=== PATIENT | female | born 1935 | race Caucasian/White ===

== ENCOUNTER → 2016-04-25 | Outpatient (CLI) | payer OTHER ==
[~2016-04-25] MED LIST: BACTROBAN CREAM30 G2 TOP; DOXYCYCLINE 10100 MG PO; HYDROCODONE-AP1 EAC6 PO; LEVAQUIN 500 M500 M1 PO; LEVAQUIN 500 M500 M2 PO; PENICILLIN V P500 MG PO; SSD CREAM 1% 5050 GM TOP; XARELTO20 MG PO
== END ==
LOC: HYPER 07:11
DX: S81.801D Unspecified open wound, right lower leg, subsequent encounter (principal); E11.9 Type 2 diabetes mellitus without complications; I89.0 Lymphedema, not elsewhere classified; Z86.718 Personal history of other venous thrombosis and embolism; X58.XXXD Exposure to other specified factors, subsequent encounter

== ENCOUNTER → 2016-05-10 | Outpatient (CLI) | payer OTHER | LOC: HYPER 07:05 | DX: I87.331 Chronic venous hypertension (idiopathic) with ulcer and inflammation of right lower extremity (principal); E11.622 Type 2 diabetes mellitus with other skin ulcer; L97.811 Non-pressure chronic ulcer of other part of right lower leg limited to breakdown of skin; I82.501 Chronic embolism and thrombosis of unspecified deep veins of right lower extremity; I89.0 Lymphedema, not elsewhere classified; R60.0 Localized edema; L03.115 Cellulitis of right lower limb ==

== ENCOUNTER → 2016-05-31 | Outpatient (CLI) | payer OTHER | LOC: HYPER 07:18 | DX: I87.331 Chronic venous hypertension (idiopathic) with ulcer and inflammation of right lower extremity (principal); L97.812 Non-pressure chronic ulcer of other part of right lower leg with fat layer exposed; I89.0 Lymphedema, not elsewhere classified; Z86.718 Personal history of other venous thrombosis and embolism ==

== ENCOUNTER 2016-06-05 01:45 | Inpatient (IN) | payer OTHER ==
[~2016-06-05] VITALS: Ht 162.6 cm; Wt 55.6 kg
[2016-06-05] VITALS (34 sets, daily range): BP systolic 89–127; BP diastolic 48–99
--- NOTE | ~2016-06-05 | HC ---
[facility] [place] [place] [address] CONSULTATION Name: CAS ROCHE LESLIE Room #: 309-P ADM IN M.R.#: [id number] Admission: 06/05/16 Attend Phys: Benjamin Mixon MD Discharge: Date of : 39 Report #: [id number] THIS REPORT FOR: //name// CC: Pino Mixon DATE OF SERVICE: 06/05/2016 NEPHROLOGY CONSULTATION REASON FOR CONSULTATION: Acute kidney injury and multiple metabolic and electrolyte abnormalities. HISTORY OF PRESENT ILLNESS: This is a 80-year-old female who had actually been here at [facility] in early April, presenting with a similar, but less severe episode of recurring emesis. She has a complex large ventral hernia, which had been evaluated during that prior hospitalization. At that time, she presented with a couple of days of vomiting and had some mild metabolic abnormalities. This time around, her emesis started 4-1/2 days ago. The patient seems to sequester some information, but her son is here and very helpful and states that she has been having emesis likely hourly over those 4 days. Every time she takes fluid in, she has sudden regurgitation. She has gotten even more thirsty, so she tries to drink even more fluid on top of that and then ends up having even more emesis. She finally went to the emergency room in [place] last evening after she had a syncopal-type episode. Her presentation there was rather remarkable. She had a pH of 7.7 and a measured bicarbonate of 50. Her potassium was 2.0 at that time. She was started on some replacement, but began having some cardiac arrhythmias and the one strip I have been able to look at looked like an SVT. She was eventually transferred here to [facility] and got here early this morning. In talking to the patient, she has not had any emesis since she has arrived here, but she has not had anything in by mouth. She has had no blood in her emesis. She has had some nausea, but she has been so thirsty that she has been trying to make up the difference by taking in all those fluid. Her urine output is decreased and had turned very dark. She had gotten weak and had this syncopal type episode. She was unaware of any cardiac arrhythmias. She has had no more arrhythmias since she has been here. All of her electrolytes will be outlined below. She has received about 1-1/2 liters of saline since arrival here. She has already received 60 mEq of potassium replacement. Blood pressures are actually doing better. In talking to the patient, she is unaware of any prior renal problems. Looking back at her hospitalization in early April, she presented then with a creatinine level of 1.8. She was alkalotic, with a bicarbonate of 40 at that time[address] [address] CONSULTATION Name: CAS ROCHE Room #: 309-P ADM IN M.R.#: [id number] Admission: 06/05/16 Attend Phys: Benjamin Mixon MD Discharge: Date of : 37 Report #: [id number] Potassium was not bad at 3.7. With volume replacement, she went down to her creatinine and within 3 days, down to 0.8 and at that time, her bicarbonate had dropped to 36. Obviously, she had not fully corrected at that point. Now, she comes in with potassium of 2.3, bicarbonate greater than 45, BUN 79 and creatinine 3.2. The patient relates no urinary symptoms. She is unaware of previous urinary tract infections. I reviewed the CT scan that was done during her April hospitalization and she has a left kidney that is in the pelvic location. With that, she also has large Staghorn calculus in that kidney, suggesting she has had chronic UTIs that were asymptomatic. Right kidney was fairly unremarkable on that. Additionally, at this time, the patient has leukocytosis with a white count of 19.3. She has been battling lower extremity edema due to chronic venous stasis and lymphedema. She has DVT remotely about 30 years ago. Another DVT was diagnosed more recently and she is chronically on some anticoagulation. She has also had some cellulitis involved with her right leg and has been on some antibiotics associated with that. She has also been getting local care of those wounds by Dr. Luis Mary of the wound center. The patient's son actually states that her leg wounds have improved rather dramatically. PAST MEDICAL HISTORY: She has had this large hernia some time after her section in the . She is not on much in the way of chronic medications. She has been on some Levaquin as an antibiotic and local care for her legs. Other than that, just the Xarelto. She denies any previous history of cardiac disease. She has had the chronic lymphedema. PAST SURGICAL HISTORY: Past surgeries include the section in the . She has had bilateral cataracts. ALLERGIES: No known medical allergies. FAMILY HISTORY: Noncontributory. SOCIAL HISTORY: The patient is a . Her main residence is in [place], [place]. She is retired. She and her son actually spent quite a bit of time down in the [facility] at a time. She down there and enjoyed being in that location. She is a nonsmoker. REVIEW OF SYSTEMS: Mostly positive for the recurring emesis and the increasing amount of thirst. Her bowels have not moved for 5 days. No difficulty voiding urine normally. No dysuria. She had the syncopal-type episode and states she did realize that she was getting thirsty. She denies dyspnea, cough or chest pain. She is unaware of palpitations. She did get very hot yesterday, but had no documented fever. Later on, she felt very chilled. She has the chronic lower extremity edema as noted above. She has no upper extremity edema. No recent visual or hearing changes. [facility] [address] [place] [address] CONSULTATION Name: CAS ROCHE LESLIE Room #: 309-P [place] IN ..#: [id number] Admission: 06/05/16 Attend Phys: Benjamin Mixon MD Discharge: Date of : 37 Report #: [id number] PHYSICAL EXAMINATION: GENERAL: Acutely ill-appearing female who is awake and responsive, mildly lethargic. VITAL SIGNS: Blood pressure 103/53, heart rate 73, respiratory rate 18 and oxygen saturation 100%. HEENT EXAMINATION: Shows pupils are equal and reactive. Sclerae nonicteric. Oral mucosa is very dry. Palate and lips are irritated and mildly erythematous. NECK: Shows no JVD. Neck is supple. No adenopathy. CHEST: Clear bilaterally in all lung mane. HEART: Currently a regular rate and rhythm. ABDOMEN: Shows a complex, very protuberant ventral hernia. There are soft loops of presumably intestine within the ventral hernia, although this has been described radiologically of having a large percent of the stomach in this hernia also. It is generally reducible, although she does get somewhat uncomfortable with that. It is remarkably soft, non-taut. There are a few bowel sounds present. This hernia does encompass a large portion of the anterior abdominal wall and appears to be in 2 resection, which is consistent with the radiologic appearance of it being complex with 2 main areas. EXTREMITIES: Upper extremities show no edema. Lower extremities show chronic venous stasis changes with dense edema and pebbling, much more severe on the right than the left. Left side is probably 2+, right side is 3+. She has new dressing on the posterior aspect, so I did not unwrap this to look at the area that had been most inflamed. NEUROLOGIC: She is grossly intact. LABORATORY DATA: Sodium 145, potassium 2.3, chloride 82, bicarbonate greater than 45, BUN 79, creatinine 3.2 and glucose 176. AST 204, ALT 169. Total protein 6.1. Albumin 2.9. Total bilirubin 2.6. Calcium 8.4. Magnesium 2.5. White count 19.3, hemoglobin 14.5, hematocrit 44.4 and platelets 299,000. Differential on the white count, 82 segs, 8 bands, 4 lymphs and 6 monos. Urinalysis: Specific gravity greater than 1.030, pH 5.0, 1+ protein, 2+ bilirubin, trace ketones, 6-15 white cells and 0-2 red cells. Arterial blood gas on admission, pH of 7.67, pCO2 of 48, pO2 of 66 and lactate of 9.25. ASSESSMENT: 1. Recurring emesis due to enlarged ventral hernia. Again, she reports it is being nearly hourly for 4 days. 2. Metabolic alkalosis, severe due to her recurring emesis. She has very high pH in spite of severe hyperventilation in attempts at compensating with retaining CO2. Appropriately, this is hypochloremic. She needs extensive amounts of saline. Her blood pressure was actually doing better than when she came in. She will need liters of saline to correct this. During her prior admission, when she was volume repleted, it still took her some time to correct her alkalosis. So, we will need to monitor that. 3. Hypokalemia, severe, also related to her emesis and her metabolic alkalosis. [facility] [address] [place] [address] CONSULTATION Name: CAS ROCHE LESLIE Room #: 309-P ADM IN M.R.#: [id number] Admission: 06/05/16 Attend Phys: Benjamin Mixon MD Discharge: Date of : 37 Report #: [id number] As we correct the alkalosis, we will get a better picture of what her potassium status is. We have already given her a significant amount of potassium and we will recheck in a couple of hours and continue to replace as needed. 4. Acute kidney injury related to her extreme volume depletion. She is making some urine. Her urine does have a very high specific gravity. 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 She had a normal creatinine at 0.8 as recently as her date of discharge in early April. Again, we would expect further improvement in this. 5. Ventral hernia, large and complex. This has been previously evaluated by Dr. Rojas. Since this is the second presentation and the current presentation is much more severe than it had been previously, I think there needs to be some potential urgency in getting this surgically repaired, although I know it will be a very complex procedure. We will defer to Dr. Rojas. 6. Chronic Staghorn calculus, left kidney. This would suggest she has had long-standing urinary tract infections, which have been asymptomatic and potentially under-diagnosed. We will see what her current cultures show, although she has been on antibiotics for some time related to her right lower extremity. At this point, this is not one of her problems needing the most rapid correction, but will certainly need more attention down the line. 7. Chronic venous stasis changes/lymphedema of the lower extremities with associated cellulitis. She has been on local care and that has actually been improving. Dr. Mary will be involved in her care here. 8. Deep venous thrombosis, which likely was the original cause of her chronic venous stasis changes. Her first one was documented decades ago. She has had a more recent one. She is being continued on anticoagulation. 9. Cardiac arrhythmias, which looked to be supraventricular tachycardia. This would be largely electrolyte related. As we replace, we will look for evidence of further cardiac abnormalities, but she appears to be in sinus rhythm and more stable at this time. PLAN: 1. Increase the volume replacement. We will shoot for several more liters of IV saline today. Her blood pressure is doing better, but she is still volume deplete. 2. Replace potassium aggressively. She is likely several 100 mEq behind, if not more. Additionally, we will watch for changes as we correct her alkalosis. We will check labs again in a few hours. 3. Recheck additional labs, including phosphorus and magnesium, although the magnesium was okay earlier. 4. Continue to monitor for cardiac arrhythmias. 5. Culture her urine and blood. 6. Continue lower extremity wound care. [address] [address] CONSULTATION Name: CAS ROCHE LSELIE Room #: 309-P ADM IN M.R.#: [id number] Admission: 06/05/16 Attend Phys: Benjamin Mixon MD Discharge: Date of : 37 Report #: [id number] We will follow along closely in the care of this acutely ill patient. <ELECTRONICALLY SIGNED> By: Mani Smith MD 06/09/16 1116 [id number] Jamie Mcdonald MD /nt
--- NOTE | ~2016-06-05 | HC ---
[facility] [place] [address] [place] [address] CONSULTATION Name: CAS ROCHE Room #: 516-1 [facility] IN M.R.#: [id number] Admission: 06/05/16 Attend Phys: Benjamin Mixon MD Discharge: 06/10/16 Date of : 37 Report #: [id number] THIS REPORT FOR: //name// CC: Pino Mixon DATE OF SERVICE: 06/06/2016 DATE OF SERVICE: 06/06/2016. REQUESTING PHYSICIAN: Dr. Benjamin Mixon. CHIEF COMPLAINT: Right lower extremity ulcerations. HISTORY OF PRESENT ILLNESS: This is a pleasant white female who I had been following in the outpatient clinic for chronic ulcerations on her right lower extremity for the past several months. The patient was seen within the past week and was improving. Her edema was well controlled with compression wraps. The patient has been using morphine, Silvadene cream over the open ulcerations with adequate pain relief. The patient states approximately 2 days after her clinic visit, she started having nausea, vomiting, had recurrence of small-bowel obstruction which prompted her to be admitted to the hospital. I have been asked to assist in the care of her ulcerations at this time. PAST MEDICAL HISTORY: Significant for abdominal ventral hernia, chronic lymphedema, diabetes, peripheral vascular disease, right leg DVT, recurrent cellulitis both legs. CURRENT MEDICATIONS: Multiple, I reviewed the patient's medication list does include Xarelto. DRUG ALLERGIES: None. SOCIAL HISTORY: The patient resides at home with her son, does not smoke or drink alcohol. FAMILY HISTORY: Not pertinent to current medical condition. REVIEW OF SYSTEMS: CONSTITUTIONAL: The patient denies fevers or chills. NEUROLOGIC: The patient complains of overall generalized weakness, but no isolated weakness in arms or legs. EYES: No complaints. ENT: No complaints. CARDIAC: The patient denies chest pain, palpitations, peripheral edema. RESPIRATORY: The patient denies shortness of breath, cough or wheezes. [facility] [address] [place] [address] CONSULTATION Name: CAS ROCHE Room #: 516-1 [facility] IN ..#: [id number] Admission: 06/05/16 Attend Phys: Benjamin Mixon MD Discharge: 06/10/16 Date of : 37 Report #: [id number] GASTROINTESTINAL: The patient complains of nausea, vomiting, now with NG tube with abdominal distention and mild pain consistent with a bowel obstruction. GENITOURINARY: No complaints. MUSCULOSKELETAL: No complaints. SKIN: There are multiple ulcerations on the right lower extremity, all of which are superficial. PHYSICAL EXAMINATION: VITAL SIGNS: Stable. The patient is afebrile. GENERAL: This is alert and oriented x 3, pleasant white female who is in no acute distress at this time. HEENT: Normocephalic, atraumatic. Mucous membranes are dry. NG tube is in the right naris. Pupils are round. Sclerae white. NECK: Supple. Nontender. LUNGS: Clear. HEART: Regular. ABDOMEN: Soft. Mildly distended without rebound or guarding. EXTREMITIES: The patient moves all extremities without difficulty, evaluation of right lower extremity reveals 2-3+ edema, which is chronic for her, patient without significant warmth. There is erythema which is chronic for her. There is ulcerations noted on the posterior aspect of the calf, which are clean, superficial and granulating without signs of cellulitis. Distal pulses are intact. Bilateral heels are intact. NEUROLOGIC: Cranial nerves 2-12 are grossly. Motor and sensory grossly intact. LABORATORY DATA: White cell count 12.0, hemoglobin 12.6, albumin is low at 2.3. IMPRESSION: 1. Chronic ulceration, right lower extremity. Limited breakdown of skin. 2. Chronic venous insufficiency with edema. 3. Secondary lymphedema, secondary to chronic venous insufficiency. 4. Small-bowel obstruction. 5. Severe protein calorie malnutrition with albumin of 2.3. PLAN: The patient responds well to morphine, Silvadene cream. We will do this over the ulceration on the right lower extremity, cover this with Xeroform, ABD, Kerlix. At this time, the patient obviously n.p.o. and so we will try, once she becomes off n.p.o. we will make sure we maximize her oral protein supplementation for healing. Keep her legs elevated as much as possible to decrease edema, keep her heels elevated off the bed while she is in bed. Once she is able, we will have physical and occupational therapy evaluate the patient for strengthening. <ELECTRONICALLY SIGNED> By: Luis Mary MD 06/15/16 0826 [id number] Luis Mary MD /nt
--- NOTE | ~2016-06-05 | HC ---
[facility] [place] [address] [place] [address] CONSULTATION Name: CAS ROCHE LESLIE Room #: 309-P [facility] IN M.R.#: [id number] Admission: 06/05/16 Attend Phys: Benjamin Mixon MD Discharge: Date of : 37 Report #: [id number] THIS REPORT FOR: //name// CC: Pino Mixon REASON FOR CONSULTATION: Recurrent nausea and vomiting related to small-bowel obstruction. HISTORY OF PRESENT ILLNESS: The patient is a 80-year-old white female transferred to [facility] from [facility] for SVT, hypotension, hypokalemia, recurrent nausea and vomiting. History is obtained from the patient with the support of her son. She had eaten at a buffet with her son on Monday and felt unwell later that day. She developed recurrent nausea and vomiting the following day, which has persisted, not allowing her to keep food down since that time. She has not had a bowel movement since Monday, but still has been able to pass flatus. She had had a similar episode 7 weeks ago for which she was hospitalized 4 or 5 days and attributed to small-bowel obstruction. She does have a large midline incisional ventral hernia that contained stomach, colon and small bowel, and for this reason, she was evaluated by general surgery, Dr. Rojas. She does not relate that she has undergone any previous GI evaluation such as upper endoscopy or colonoscopy in the past. PAST MEDICAL HISTORY: She has a large ventral hernia, which has been present for over 30 years. She has undergone previous , tonsillectomy, cataract surgery. She does have bilateral peripheral lymphedema. She has a history of DVT in the right leg, maintained on Xarelto. She has diabetes mellitus and a history of peripheral vascular disease. CURRENT MEDICATIONS: Pantoprazole 40 mg IV per day, Zosyn 2.25 grams IV q. 6 hours, norepinephrine for blood pressure support, potassium supplements. ALLERGIES: No known drug allergies. SOCIAL HISTORY: She does not smoke cigarettes or drink alcohol. REVIEW OF SYSTEMS: She has felt increasingly weak. She had no documented fevers or chills at home. On presentation, she had denied shortness of breath, wheezing, coughing or chest pain. Gastrointestinal, as per HPI. She has had no preceding dysuria or hematuria. She does have a history of a kidney stone. PHYSICAL EXAMINATION: GENERAL: She appears uncomfortable and leaning forward in bed with irritation of her throat following placement of her NG tube. She has a large amount of [address] [address] CONSULTATION Name: CAS ROCHE Room #: 309-P [facility] IN .R.#: [id number] Admission: 06/05/16 Attend Phys: Benjamin Mixon MD Discharge: Date of : 37 Report #: [id number] bilious material output almost 2 liters within the past hour after placement. She has been afebrile at 0600. VITAL SIGNS: Blood pressure 92/67, pulse 77. HEENT: No scleral icterus. NECK: Supple without lymphadenopathy. CARDIOVASCULAR: Heart rate and rhythm regular without murmur. LUNGS: Auscultation of her lungs reveals some decreased breath sounds and mild coarseness with breathing right anterior and posterior lung mane. ABDOMEN: Soft. She has a large abdominal wall hernia with many bowel loops within hernia sac many of which can be reduced through the abdominal defect into the abdomen without any obvious hard painful knots. She does have bilateral peripheral edema with very brawny changes. LABORATORY DATA: This morning include sodium 145, potassium 2.3, chloride 82, CO2 greater than 45, BUN 79, creatinine 3.2, glucose 176. Liver function tests were abnormal with total bilirubin of 2.6, AST 204, ALT 169 and alkaline phosphatase 79. Albumin was decreased at 2.9. White blood cell count was elevated at 19.3, hemoglobin 14.5, platelet count 299,000 with 82 segs, 8 bands. KUB revealed a large amount of material within the stomach and a large abdominal wall hernia with much of the stomach as well as small and large bowel loops through the anterior abdominal wall. IMPRESSION: 1. A small-bowel obstruction with recurrent nausea and vomiting since Monday. Following placement of NG within the past hour, she has had almost 2 liters of bilious material in return. 2. Large ventral wall hernia. 3. Severe metabolic alkalosis. 4. Acute renal failure. 5. Abnormal liver function tests. 6. History of DVT with maintenance on Xarelto. RECOMMENDATIONS: 1. Keep NG to suction. 2. Await CT abdomen, which has been ordered. 3. Monitor liver function tests. 4. With development of SVT with heart rate to 220 in the Emergency Room, she was started on IV Cardizem. <ELECTRONICALLY SIGNED> By: Misbah Root MD 06/10/16 0818 1239 [id number] Medhat Pena MD /nt
--- NOTE | ~2016-06-05 | HC ---
[facility] [place] [address] CONSULTATION Name: CAS ROCHE LESLIE Room #: 516-1 DIS IN M.R.#: [id number] Admission: 06/05/16 Attend Phys: Benjamin Mixon MD Discharge: 06/10/16 Date of : 37 Report #: [id number] THIS REPORT FOR: //name// CC: Pino Mixon HISTORY OF PRESENT ILLNESS: The patient is a 80-year-old white female who was transferred from [facility] with SVT, hypertension, severe hypokalemia down to 2.3. She apparently had been eating at a buffet and had onset of nausea and vomiting. She was noted to have severe electrolyte abnormalities with the SVT and was transferred to [facility]. Her SVT resolved after correction of her electrolyte abnormalities. She was noted to have a small-bowel obstruction with elevated liver function test and had a fecal impaction and underwent manual disimpaction on 06/05/2016. The patient has a history of an incarcerated ventral hernia and surgery is involved and they are not recommending any elective surgery until at least September with her recent diagnosis of a right lower extremity DVT in March. She has been on Xarelto. The patient currently has an NG tube in place. There is consideration for removal. She is significantly debilitated. We are seeing her in rehabilitation medicine consultation. PAST MEDICAL HISTORY: Includes the right lower extremity DVT in March for which she has been on Xarelto. She has a history of a chronic left staghorn calculus. She has cellulitis to the lower extremities and is followed with Dr. Luis Mary. Diet controlled diabetes, lymphedema, peripheral vascular disease. MEDICATIONS: Please see the full medication listing. HABITS: No history of tobacco or alcohol. SOCIAL HISTORY: Lives in a house, 2 steps in, did not utilize any gait aids. She lives with her son. This is [place] style. The son works from home. REVIEW OF SYSTEMS: Did not offer any current complaints of chest pain, shortness of breath or abdominal discomfort. She notes some throat discomfort as expected with the NG-tube. Did not offer any focal extremity pain complaints. She does have the chronic swelling and the cellulitis of her lower extremities. PHYSICAL EXAMINATION: GENERAL: The patient is a pleasant 80-year-old white female in no obvious distress. VITAL SIGNS: Last recorded temperature is 97.5, pulse 69, respirations 18, blood pressure 125/80. She is alert, pleasant. HEENT: Appeared to be benign except for the NG tube, which is in place[place] [address] CONSULTATION Name: CAS ROCHE LESLIE Room #: 516-1 [facility] IN ..#: [id number] Admission: 06/05/16 Attend Phys: Benjamin Mixon MD Discharge: 06/10/16 Date of : 37 Report #: [id number] EXTREMITIES: She has functional range of motion to both upper extremities; strength is grade 4-/5. DTRs are trace to 1. ABDOMEN: She has a large ventral hernia. It was not tense, was soft. In her lower extremities, she does have 1-2+ edema. Her right leg is wrapped. She does have some erythema both lower extremities with her cellulitis. Strength is probably a grade 4- to 3+/5. She is min assist with sit to stand. She was able to ambulate 30 feet contact guard with a front-wheeled walker. ASSESSMENT: A 80-year-old white female with the following problem list: 1. Medical complexity with generalized debilitation. 2. Severe metabolic alkalosis, which is being corrected. 3. Small bowel obstruction with nausea and vomiting, which has improved with the NG tube in place. 4. Large ventral wall hernia followed by surgery with no urgent plans for surgical intervention. 5. Acute renal failure with Nephrology following. 6. Abnormal LFTs improving, likely due to illness. 7. Chronic constipation with a fecal impaction status post recent disimpaction. 8. History of right lower extremity DVT on Xarelto, currently on hold. 9. Bilateral lower extremity cellulitis. 10. Supraventricular tachycardia, which resolved with resolution of metabolic abnormalities. PLAN: Discussion with the patient and son. She certainly may benefit from a short acute in-hospital inpatient rehabilitation stay once the NG tube is out and she is medically cleared. At this point, we will follow along with you and see how she does. Thank you for asking us to assist in this patient's care. <ELECTRONICALLY SIGNED> By: Inder Culp MD 06/15/16 1528 [id number] Inder Culp MD /nt
--- NOTE | ~2016-06-05 | HC ---
[facility] [place] [address] CONSULTATION Name: CAS ROCHE LESLIE Room #: 241-P ADM IN M.R.#: [id number] Admission: 06/05/16 Attend Phys: Benjamin Mixon MD Discharge: Date of : 37 Report #: [id number] THIS REPORT FOR: //name// CC: [facility]ino [facility]uffin [facility] DATE OF SERVICE: 06/05/2016 HISTORY OF PRESENT ILLNESS: The patient is a 80-year-old female who is known to the general surgery service who was admitted overnight through the emergency department with severe dehydration, electrolyte abnormalities, acute renal failure with a 5-day history of nausea, vomiting and inability to tolerate liquids. Had eventually sufferred what sounds like a symcopal episode and was seen at an outside facility. Was noted there to be in SVT, with severe electrolyte abnormalities. The patient was then transferred to [facility]. In the emergency department, she was noted to have a pH of 7.67, lactate of 9.25, white blood cell count of 19 and urinalysis showing 6-15 WBCs, 1-9 bacteria, moderate amorphous urates and 2+ bilirubin. Abdominal films were obtained at 0800 this morning, which demonstrated retained fluid within the stomach and large lower ventral hernia containing stomach, colon and small bowel. The viscera were noted to extend off the edge of the field of view. No obvious obstruction was noted, but stomach was noted to be fluid filled. Interestingly, her abdominal exam has reportedly been benign throughout. At some point, a nasogastric tube was placed and approximately 3 liters of gastric contents was evaluated. This output apparently tapered off following that. The son is at the bedside with the patient and gives the bulk of the history. He reports that she has had issues with constipation over the past couple of weeks. She is unable to have a bowel movement without an enema having been administered. She also has not been able to tolerate oral liquids or solids since this past Monday night or Monday morning. She has apparently not been in abdominal discomfort. She has been passing flatus throughout this time. PAST MEDICAL HISTORY: 1. Positive for lower extremity lymphedema with cellulitis being treated by wound care team. 2. History of chronic lower abdominal ventral incisional hernia from a prior in 1979 containing loops of colon and small bowel and stomach. 3. History of diabetes mellitus. 4. Reported history of peripheral vascular disease. 5. Cataracts. 6. Right lower extremity deep venous thrombosis history. PAST SURGICAL HISTORY: Positive for section in 1979, tonsillectomy, bilateral cataract surgery. [address] [address] CONSULTATION Name: CAS ROCHE LESLIE Room #: 241-P [facility] IN ..#: [id number] Admission: 06/05/16 Attend Phys: Benjamin Mixon MD Discharge: Date of : 37 Report #: [id number] FAMILY HISTORY: Includes coronary artery disease. SOCIAL HISTORY: Negative for tobacco, ETOH or drug use. The patient lives at home. Of note, the patient is on Xarelto regarding this lower extremity DVT. She has also been on chronic antibiotics for right lower extremity wound with cellulitis, which is resolving, being followed by Dr. Luis Mary. REVIEW OF SYSTEMS: CONSTITUTIONAL: Negative for fevers or chills. Negative for unwanted weight loss. OCULAR: History of bilateral cataract repair. No new known visual changes. HEENT: Positive for dry mouth, dry oral mucosa. Negative for dysphagia or odynophagia. PULMONARY: No productive cough, no hematemesis. CARDIOVASCULAR: Positive for SVT at outside facility prior to transfer. Positive for Simple type episode which triggered her being brought to the hospital in [place]. GASTROINTESTINAL: Positive for nausea, vomiting and inability to tolerate liquids. Positive for significant thirst. Unfortunately this would lead to further drinking of water, which would result in immediate emesis. Positive for history of severe constipation requiring multiple enemas in order to have a bowel movement. She does report passing flatus, but no significant large bowel movements in several days. ENDOCRINE: No heat or cold intolerance. Positive for history of diet-controlled diabetes. LYMPHATICS: Positive for lower extremity lymphedema with right lower extremity cellulitis followed by wound care team. GENITOURINARY: Positive for previous urinary tract infections, known history of left-sided staghorn calculus. ALLERGIES: No known drug allergies. MEDICATIONS: Levaquin 500 mg twice daily, Silvadene cream, [place] p.r.n., penicillin V, Xarelto 20 mg daily, and Bactroban ointment. PHYSICAL EXAMINATION: GENERAL: On exam, the patient is frail and lethargic. She does answer questions appropriately. She has a nasogastric tube in place with dark gastric content output. VITAL SIGNS: She is afebrile and her blood pressure is actually normal at this time with mean arterial pressure in the 75 range, pulse in the 70s-80s, respirations of 18, and maintaining her saturations are at 100%. HEENT: Shows head is atraumatic and normocephalic. She does have some cachexia of the temples. Mucosae are dry. No icterus is appreciated. NECK: Without jugular venous distention. HEART: Regular rate and rhythm. LUNGS: Clear to auscultation. No respiratory distress. No retractions. ABDOMEN: Soft with an impressive lower ventral hernia with loops of bowel palpable through the skin. The pannus protrudes down to the lower midline toward the waste. This is not significantly tender to palpation, however. The edges of the hernia are not palpable. Bowel sounds are present within the hernia sac. Well-healed lower midline incision. EXTREMITIES: With venous stasis versus lymphedema changes with 2-3+ edema. There was a dressing on the right lower leg from the area of prior cellulitis. Dressing is clean, [facility] [address] [place] [address] CONSULTATION Name: CAS ROCHE Room #: [facility] IN ..#: [id number] Admission: 06/05/16 Attend Phys: Benjamin Mixon MD Discharge: Date of : 37 Report #: [id number] dry and intact. The patient moves all extremities. Cranial nerves are grossly intact and symmetric. PSYCHIATRIC: Shows normal mood and affect. Laboratory studies are reviewed. Lactate has not been rechecked since admission. Most recent basic metabolic profile shows that the creatinine has improved to 2.4 from 3.2 on admission. BUN was 79 and is now 72, potassium 4.7, sodium 145, glucose of 120. Urinalysis from last night as described above. CT scan of the abdomen and pelvis without contrast was obtained on a stat basis, this was reviewed with radiology staff and images examined in detail in comparison with CT scan on 04/10/2016. This demonstrates the large lower midline abdominal incisional hernia with an opening of approximately 6 cm. This does appear chronic with approximately 40% of the colon and multiple loops of small bowel within that pouch. No obvious obstruction or strangulation, however. The diameter of the loops entering the hernia defect are similar to that exiting the defect. No sign of ischemia such as pneumatosis to the herniated loops. No free air or free fluid. Several calculi are noted within the bladder and a large left-sided staghorn calculus which is also in place in the previous CT in April. There is an impressive amount of stool in the rectum measuring approximately 9 x 9 x 10 cm consistent with an impaction. There is mild inflammation of the rectum surrounding this, again no obvious pneumatosis or signs of brody ischemia at that site. Celiac trunk and SMA are widely patent without obvious atherosclerosis, mild calcification in the distal splenic artery. Spleen is unremarkable. Gallbladder prominent, but unremarkable. The lower esophagus does have some thickening and the nasogastric tube is passed into the upper stomach in good position. No obvious appendicitis. IMPRESSION AND PLAN: 1. 80-year-old female with chronic large lower midline ventral incisional hernia containing loops of colon, small bowel, and stomach, severe metabolic alkalosis and dehydration with significant electrolyte abnormalities and recent supraventricular tachycardia noted associated with this. No obvious history of coronary artery disease or COPD. No obvious colonic or small bowel ischemia and no sign of acute perforation or peritonitis. No sign of bowel obstruction although partial gastric outlet obstruction may be associated with this chronic condition. Interestingly, the patient has continued to pass flatus over the past several weeks; however, she has developed a severe fecal impaction which will need to be addressed in the short term. 2. No indication for immediate surgical intervention for this large, chronic hernia. Discussed with the patient and her son that to repair a hernia with extensive externalized viscera, that has been in place for an extended period of time, will result in loss of domain, which is decreased intra-peritoneal volume. As such, in order to return the colon, small bowel, and stomach to their proper location, and to close the hernia defect, an abdominal wall reconstruction will likely be necessary to avoid creating an [facility] [address] [facility] [place] [address] CONSULTATION Name: CAS ROCHE Room #: 241-P ADM IN MNancy.#: [id number] Admission: 06/05/16 Attend Phys: Benjamin Mixon MD Discharge: Date of : 37 Report #: [id number] abdominal compartment syndrome. 3. Agree with aggressive resuscitative efforts and electrolyte correction by nephrology. Recommendations and medical management very much appreciated. 4. Will follow serial lactate levels and will follow closely with serial abdominal examinations. 5. Should signs of acute peritonitis or overt visceral ischemia become more apparent, will reevaluate potential need for more urgent surgical intervention. This patient is at high risk for perioperative complications, including perioperative hemorrhage as she is on Xarelto which has been held at this time. Will require 48-72 hours off Xarelto before elective surgical intervention would be advisable because of this. 7. Have discussed the case with hospitalist medicine and gastroenterology. Consultation very much appreciated. Will continue to follow closely and make further recommendations based upon clinical status as well as laboratory and radiographic findings. Greater than one hour utilized reviewing the patient's records, radiographic images and reports, laboratory studies and discussing with the patient and her family and the various consulting teams. <ELECTRONICALLY SIGNED> By: Kai Culver MD 06/06/16 0926 [id number] Kai Culver MD /nt
--- NOTE | ~2016-06-05 | EKG ---
[place] [address] [facility] [place] [address] ELECTROCARDIOGRAM REPORT Name: CAS ROCHE LESLIE Room #: 241-P ADM IN M.R.#: [id number] Admission: 06/05/16 Attend Phys: Benjamin Mixon MD Discharge: Date of : 37 Report #: [id number] THIS REPORT FOR: //name// [facility] Test Date: 2016-06-05 Test Time: 07:55:14 Pat Name: CAS ROCHE Department: Room: 241 P Gender: F Non Categorical Pres[employer] Teacher: SYMONE : 1935 Requested By: Conchis Chong Order Number: [id number] MD: Steve Stein Measurements Intervals [place] Rate: 73 P: 81 SC: 146 QRS: -59 QRSD: 95 T: 113 QT: 435 QTc: 480 Interpretive Statements Sinus rhythm Left anterior fascicular block Poor R-wave progression Nonspecific T wave abnormality No previous ECG available for comparison Electronically Signed On 06-05-2016 12:58:26 CDT by Steve Stein [email or web address] <ELECTRONICALLY SIGNED> By: Steve Stein MD, [facility] 06/05/16 1258 [id number] Steve Stein MD, [facility] /EPI
[2016-06-05 02:14] LABS: ABG SAMPLE TYPE ARTERIAL; HCO3 53.7 mmol/L (22.0-26.0); LACTATE 9.25 mmol/L (0.5-2.0); O2(CT) 19.2 mL/dL (15.0-23.0); O2Hb 92.5 % (92.0-98.0); PCO2 47.7 mmHg (35.0-45.0); PO2 65.5 mmHg (80.0-100.0); STICK SITE R.BRACHIAL; pH 7.669 (7.360-7.450); sO2 95.9 % (92.0-98.0); tCO2 55.1 mmol/L (24.0-30.0)
[2016-06-05 02:40] LABS: HEMATOCRIT 44.4 % (37.0-47.0); HEMOGLOBIN 14.5 gm/dL (12.0-15.0); MCH 28.9 pg (26.0-34.0); MCHC 32.6 g/dL (28.0-37.0); MCV 88.7 fL (80.0-100.0); PLATELET COUNT 299 thou/uL (150-400); RBC 5.01 mil/uL (4.20-5.00); RDW 14.8 % (10.5-14.5); WBC 19.3 thou/uL (4.0-11.0)
[2016-06-05 02:43] LABS: MANUAL DIFF YES
[2016-06-05 03:01] LABS: ALBUMIN 2.9 g/dL (3.4-5.0); ALKALINE PHOSPHATASE 79 U/L (46-116); BUN 79 mg/dL (7-18); CALCIUM 8.4 mg/dL (8.5-10.1); CHLORIDE 82 mmol/L (98-107); CREATININE 3.2 mg/dL (0.6-1.0); GLUCOSE 176 mg/dL (74-106); MAGNESIUM 2.5 mg/dL (1.8-2.4); SGOT 204 U/L (15-37); SGPT 169 U/L (30-65); SODIUM 145 mmol/L (136-145); TOTAL BILIRUBIN 2.6 mg/dL (<0.1-1.0); TOTAL PROTEIN 6.1 g/dL (6.4-8.2)
[2016-06-05 03:01] LABS: URINE BILIRUBIN 2+ (Negative); URINE BLOOD TRACE (Negative); URINE COLOR YELLOW; URINE GLUCOSE-RANDOM* NEGATIVE (Negative); URINE KETONES TRACE (Negative); URINE LEUKOCYTES-REFLEX 1+ (Negative); URINE PROTEIN (DIPSTICK) 1+ (Negative); URINE SPECIFIC GRAVITY >= 1.030 (1.003-1.035)
[2016-06-05 03:05] LABS: CO2 > 45 mmol/L (21-32); POTASSIUM 2.3 mmol/L (3.5-5.1)
[2016-06-05 03:12] LABS: ABSOLUTE NEUTROPHILS 17.4 thou/uL (1.4-8.2); LARGE PLATELETS FEW; TOTAL CELL COUNT 100
[2016-06-05 03:17] LABS: ICTOTEST (BILI CONFIRMATORY) Positive (Negative)
[2016-06-05 03:18] LABS: CASTS None Seen /LPF (None Seen)
[2016-06-05 03:19] LABS: SQUAMOUS 0-3 Few /LPF (0-3); URINE RBC 0-2 Rare /HPF (0-2); URINE WBC-REFLEX 6-15 Few /HPF (0-5)
[2016-06-05 03:20] LABS: AMORPHOUS URATES Moderate /LPF (None Seen); CRYSTALS None Seen /LPF (None Seen); HYALINE CASTS 0-3 Few /LPF (None Seen)
[2016-06-05 14:15] LABS: BUN 72 mg/dL (7-18); CALCIUM 7.7 mg/dL (8.5-10.1); CHLORIDE 89 mmol/L (98-107); CREATININE 2.4 mg/dL (0.6-1.0); GLUCOSE 145 mg/dL (74-106); SODIUM 145 mmol/L (136-145)
[2016-06-05 14:22] LABS: POTASSIUM 4.7 mmol/L (3.5-5.1)
[2016-06-05 14:25] LABS: CO2 > 45 mmol/L (21-32)
[2016-06-05 20:27] LABS: BUN 68 mg/dL (7-18); CALCIUM 7.3 mg/dL (8.5-10.1); CHLORIDE 92 mmol/L (98-107); CREATININE 2.1 mg/dL (0.6-1.0); GLUCOSE 127 mg/dL (74-106); POTASSIUM 3.3 mmol/L (3.5-5.1); SODIUM 144 mmol/L (136-145)
[2016-06-05 20:29] LABS: CO2 > 45 mmol/L (21-32)
[2016-06-06] VITALS (43 sets, daily range): BP systolic 56–126; BP diastolic 36–72
[2016-06-06 03:18] LABS: HEMOGLOBIN 12.6 gm/dL (12.0-15.0); MCH 29.1 pg (26.0-34.0); MCHC 32.2 g/dL (28.0-37.0); MCV 90.2 fL (80.0-100.0); RBC 4.32 mil/uL (4.20-5.00); RDW 14.7 % (10.5-14.5)
[2016-06-06 03:27] LABS: CALCIUM 7.4 mg/dL (8.5-10.1); MAGNESIUM 2.1 mg/dL (1.8-2.4); PHOSPHORUS 3.6 mg/dL (2.5-4.9); POTASSIUM 3.9 mmol/L (3.5-5.1)
[2016-06-06 12:40] LABS: ALBUMIN 2.3 g/dL (3.4-5.0); CALCIUM 7.7 mg/dL (8.5-10.1); CREATININE 1.6 mg/dL (0.6-1.0); PHOSPHORUS 2.8 mg/dL (2.5-4.9); POTASSIUM 3.2 mmol/L (3.5-5.1)
[2016-06-06 12:43] LABS: ALBUMIN 2.3 g/dL (3.4-5.0); DIRECT BILIRUBIN 0.5 mg/dL (<0.1-0.3); TOTAL BILIRUBIN 2.2 mg/dL (<0.1-1.0); TOTAL PROTEIN 4.9 g/dL (6.4-8.2)
[2016-06-07] VITALS (30 sets, daily range): BP systolic 61–115; BP diastolic 33–70
[2016-06-07 07:30] LABS: MCH 30.4 pg (26.0-34.0); MCV 89.3 fL (80.0-100.0); RBC 3.25 mil/uL (4.20-5.00); RDW 14.5 % (10.5-14.5); WBC 7.8 thou/uL (4.0-11.0)
[2016-06-07 07:33] LABS: HEMOGLOBIN 9.9 gm/dL (12.0-15.0)
[2016-06-07 07:46] LABS: CALCIUM 7.5 mg/dL (8.5-10.1); CREATININE 1.3 mg/dL (0.6-1.0); PHOSPHORUS 1.8 mg/dL (2.5-4.9); POTASSIUM 3.4 mmol/L (3.5-5.1); TOTAL BILIRUBIN 1.3 mg/dL (<0.1-1.0); TOTAL PROTEIN 4.7 g/dL (6.4-8.2)
[2016-06-08 00:11] VITALS: BP 105/40
[2016-06-08 04:00] VITALS: BP 97/41
[2016-06-08 06:49] LABS: CALCIUM 7.6 mg/dL (8.5-10.1); CREATININE 0.9 mg/dL (0.6-1.0); PHOSPHORUS 1.9 mg/dL (2.5-4.9); POTASSIUM 3.6 mmol/L (3.5-5.1)
[2016-06-08 08:20] VITALS: BP 110/55
[2016-06-08 14:03] VITALS: BP 125/80
[2016-06-08 16:38] VITALS: BP 136/60
[2016-06-08 19:17] VITALS: BP 98/37
[2016-06-09 05:00] VITALS: BP 118/56
[2016-06-09 07:55] LABS: HEMATOCRIT 30.8 % (37.0-47.0); HEMOGLOBIN 10.5 gm/dL (12.0-15.0); MCH 30.3 pg (26.0-34.0); MCV 89.1 fL (80.0-100.0); RBC 3.46 mil/uL (4.20-5.00); RDW 15.1 % (10.5-14.5); WBC 6.2 thou/uL (4.0-11.0)
[2016-06-09 07:57] VITALS: BP 106/53
[2016-06-09 08:43] LABS: ALBUMIN 1.9 g/dL (3.4-5.0); CREATININE 0.7 mg/dL (0.6-1.0); PHOSPHORUS 2.8 mg/dL (2.5-4.9); POTASSIUM 4.2 mmol/L (3.5-5.1); TOTAL BILIRUBIN 1.1 mg/dL (<0.1-1.0); TOTAL PROTEIN 4.5 g/dL (6.4-8.2)
[2016-06-09 11:07] VITALS: BP 136/66
[2016-06-09 15:10] VITALS: BP 105/57
[2016-06-09 20:00] VITALS: BP 108/54
[2016-06-10 04:00] VITALS: BP 128/57
[2016-06-10 07:24] VITALS: BP 119/59
[2016-06-10 11:16] VITALS: BP 127/64
[2016-06-10] MEDS ORDERED: LEVAQUIN 750 M750 MG PO (14:33)
== END 2016-06-10 16:45 | DRG 871 ==
LOC: ICU 01:45 → 3N 06-06 16:51
PROVIDERS: Hospitalist; Internal Medicine Nephrology; Nurse Practitioner; Nurse Practitioner Adult Health
DX: A41.9 Sepsis, unspecified organism (principal); E43 Unspecified severe protein-calorie malnutrition; K43.6 Other and unspecified ventral hernia with obstruction, without gangrene; N17.9 Acute kidney failure, unspecified; I47.1 Supraventricular tachycardia; E87.3 Alkalosis; L03.119 Cellulitis of unspecified part of limb; N39.0 Urinary tract infection, site not specified; L97.811 Non-pressure chronic ulcer of other part of right lower leg limited to breakdown of skin; L03.116 Cellulitis of left lower limb; L03.115 Cellulitis of right lower limb; E87.6 Hypokalemia; K52.9 Noninfective gastroenteritis and colitis, unspecified; T68.XXXA Hypothermia, initial encounter; N20.0 Calculus of kidney; I87.8 Other specified disorders of veins; E11.51 Type 2 diabetes mellitus with diabetic peripheral angiopathy without gangrene; E86.0 Dehydration; E11.622 Type 2 diabetes mellitus with other skin ulcer; K56.41 Fecal impaction; E83.39 Other disorders of phosphorus metabolism; Z79.899 Other long term (current) drug therapy; Z79.01 Long term (current) use of anticoagulants; Z68.21 Body mass index [BMI] 21.0-21.9, adult; Z98.41 Cataract extraction status, right eye; Z98.42 Cataract extraction status, left eye; Z86.718 Personal history of other venous thrombosis and embolism; Z82.49 Family history of ischemic heart disease and other diseases of the circulatory system
CPT/HCPCS: 10078; 10096; 27000

== ENCOUNTER 2016-06-10 12:45 | Inpatient (IN) | payer OTHER ==
[~2016-06-10] VITALS: Ht 162.6 cm; Wt 58.3 kg
--- NOTE | ~2016-06-10 | PLAN ---
[facility] [place] [address] REHAB UNIT PLAN OF CARE Name: CAS ROCHE Room #: 516-1 ADM IN M.R.#: [id number] Admission: 06/10/16 Attend Phys: Inder Culp MD Discharge: Date of : 37 Report #: [id number] THIS REPORT FOR: //name// CC: Inder Monroe The patient is seen back today in followup. She is in no distress. Last recorded temperature 36.8, pulse 86, respirations 20, and blood pressure 122/68. The patient is alert and pleasant. HEENT appeared to be benign. Facies are symmetric. Transfers are mod assist. She is ambulating 30 feet contact guard with a front-wheeled walker. Lower body dressing is dependent, upper body dressing is min assist. In speech therapy, she has functional comprehension and functional expression. ASSESSMENT: 1. Medical complexity with generalized debilitation. 2. Small-bowel obstruction with nausea and vomiting, which has improved/resolved. She does have a PIPIDA scan, which is pending for today. 3. Large ventral hernia with surgery involved with no urgent plans for surgical intervention. 4. Renal insufficiency. 5. Abnormal liver function test. 6. Chronic constipation with fecal impactions, status post recent disimpaction. 7. History of right lower extremity deep venous thrombosis, on Xarelto. 8. Bilateral lower extremity cellulitis. 9. Lower extremity edema with multiple lower extremity chronic ulcerations. Wound care has been involved. PLAN: The overall plan of care is based on the preadmission screen, post-admission physician evaluation and information garnered from therapy assessments. 1. Estimated length of stay is probably 7-10 days, maybe 2 weeks depending on what she needs and how she improves in therapies. 2. Medical prognosis is reasonably good. 3. Anticipated interventions includes the interdisciplinary acute inpatient rehabilitation program with PT and OT, rehab nursing assisting regarding medication management, skin care prophylaxis, bowel and bladder issues and nursing education. Speech therapy is involved as well regarding comprehension and expression. We will have the multiple sr risk management consultant physicians involved. 4. Anticipated functional outcomes would be for the patient to improve as far as transfers, mobility and ADLs, so that she can return back to the home setting at least at the walker level. 5. Discharge destination would be back home with her son. 6. Expected therapy by discipline would include PT and OT 1-1-1/2 hours per day each five days a week throughout the duration of the acute [place] [address] REHAB UNIT PLAN OF CARE Name: CAS ROCHE Room #: 516-1 [facility] IN ..#: [id number] Admission: 06/10/16 Attend Phys: Inder Culp MD Discharge: Date of : 37 Report #: [id number] therapy is involved now and may be one half to one hour per day, but we will need to see if she needs to continue with speech therapy. <ELECTRONICALLY SIGNED> By: Inder Culp MD 06/15/16 1528 0911 1215 Inder Culp MD /nt
--- NOTE | ~2016-06-10 | HC ---
[facility] [place] [address] CONSULTATION Name: CAS ROCHE Room #: 516-1 ADM IN M.R.#: [id number] Admission: 06/10/16 Attend Phys: Inder Culp MD Discharge: Date of : 37 Report #: [id number] THIS REPORT FOR: //name// CC: Inder Monroe DATE OF SERVICE: 06/11/2016 ATTENDING PHYSICIAN: Inder Culp MD REASON FOR CONSULTATION: The patient known to me from previous evaluation for ventral hernia. HISTORY OF PRESENT ILLNESS: This 80-year-old female patient was just transferred to rehab from a hospitalization for abdominal pain. She had been admitted to [facility] with severe dehydration, electrolyte abnormalities, and acute renal failure as well as nausea, vomiting and inability to tolerate liquids. She is found to have an elevated lactate. She resolved her obstructive process with nasogastric decompression and was transitioned to a solid diet. She has been transferred to rehabilitation for further care. I have been asked to follow the patient. PAST MEDICAL HISTORY: Significant for right lower extremity cellulitis, diet-controlled diabetes mellitus, cataracts, right lower extremity DVT, lymphedema, and known incisional ventral hernia. PAST SURGICAL HISTORY: Includes in 1979 through a lower midline incision. She also underwent tonsillectomy and adenoidectomy as a child. MEDICATIONS: Please see the hospital chart for details. These include levofloxacin, Silvadene, pantoprazole, mupirocin, rivaroxaban, and [place]. ALLERGIES: No known drug allergies. FAMILY HISTORY: Reviewed and noncontributory to this hospitalization. SOCIAL HISTORY: The patient denies use of tobacco, alcohol or illicit drugs. She is accompanied by her son. REVIEW OF SYSTEMS: As per history of present illness. In addition, GENERAL: The patient denies unintentional weight loss. Denies fever or chills. HEENT: Denies changes in taste, vision, hearing, or smell. RESPIRATORY: Denies shortness of breath, COPD or asthma. CARDIOVASCULAR: Denies chest pain or palpitations. GASTROINTESTINAL: As per history of present illness. Denies bright red blood per rectum. She does note postprandial right upper quadrant abdominal pain with [facility] [address] [place] [address] CONSULTATION Name: CAS ROCHE LESLIE Room #: 516-1 ADM IN ..#: [id number] Admission: 06/10/16 Attend Phys: Inder Culp MD Discharge: Date of : 37 Report #: [id number] nausea and vomiting. Her symptoms occur within 30 minutes to an hour after eating, especially after a fatty meal. GENITOURINARY: Denies dysuria, urgency, increased urinary frequency or hematuria. MUSCULOSKELETAL: Denies myalgia or arthralgia. NEUROLOGIC: Denies headaches, numbness or tingling. PSYCHIATRIC: Denies depression, anxiety or suicidal ideations. SKIN AND INTEGUMENTARY: Denies new skin lesions, rashes, or moles. ENDOCRINE: Denies polydipsia, polyuria, heat or cold intolerance. HEMATOLOGIC: Denies easy bleeding, bruising or anemia. All other review of systems is negative. PHYSICAL EXAMINATION: VITAL SIGNS: Temperature 98.1, blood pressure 119/47, pulse 82 and respirations 16. GENERAL: This is a thin frail appearing 80-year-old female patient accompanied by her son, in no acute distress. HEENT: Atraumatic, normocephalic with moist mucosal membranes. She has a daniel appearance to her space. NECK: Supple, no appreciable lymphadenopathy. Trachea is midline. CHEST: Clear bilaterally. No crackles or wheezes. CARDIOVASCULAR: Regular rate and rhythm, S1, S2. ABDOMEN: Soft with an obvious lower midline incisional ventral hernia. Bowel is seen directly beneath the skin. The patient has no excoriation of the abdominal skin. Bowel sounds are present within the hernia. The patient has mild tenderness to palpation without overlying erythema or edema. The hernia defect edges are not palpable. GENITOURINARY: Normal external female genitalia. EXTREMITIES: No clubbing or cyanosis. NEUROLOGIC: Cranial nerves 2-12 grossly intact. PSYCHIATRIC: Normal mood and affect. SKIN AND INTEGUMENTARY: No skin lesions, rashes, or moles. LABORATORY DATA: No labs are available at this time. IMPRESSION AND PLAN: This is a 80-year-old female patient with a chronic large lower midline incisional ventral hernia containing loops of colon, small bowel and stomach. This hernia has been present for quite some time. I appreciate no obvious colonic small bowel ischemia. I discussed with the patient and her son that to repair her hernia, she would require abdominal wall reconstruction due to large size of the hernia. She will need further evaluation. This operation would not need to be undertaken in an elective setting. Appreciate that a history of DVT, which was diagnosed in March and at the earliest she could undergo an operation would be in September, six weeks after the diagnosis of her DVT. She is currently receiving anticoagulation. Her gallbladder does need to be worked up with PIPIDA scan at some point in the future. If biliary disease [address] [address] CONSULTATION Name: CAS ROCHE Room #: 516-1 ADM IN M.R.#: [id number] Admission: 06/10/16 Attend Phys: Inder Culp MD Discharge: Date of : 37 Report #: [id number] is found to be present, her gallbladder can be removed at the time of her hernia repair. She may continue a low fat/no fat diet and continue taking her Xarelto. The patient and her son expressed understanding of the plan. I sincerely appreciate the opportunity to participate in the care of this patient and I will leave further recommendations and orders in the electronic medical record as appropriate. <ELECTRONICALLY SIGNED> By: Miguel Rojas MD, FACS 06/13/16 [id number] Miguel Rojas MD, FACS /nt
--- NOTE | ~2016-06-10 | H ---
[facility] [place] [address] [address] HISTORY AND PHYSICAL Name: CAS ROCHE LESLIE Room #: 516-1 ADM IN M.R.#: [id number] Admission: 06/10/16 Attend Phys: Inder Clup MD Discharge: Date of : 37 Report #: [id number] THIS REPORT FOR: //name// CC: Inder Monroe DATE OF SERVICE: 06/10/2016 HISTORY OF PRESENT ILLNESS: The patient is a 80-year-old white female who was originally transferred to [facility] from [facility] with SVT, hypertension and severe hypokalemia, down to 2.3. She apparently had been eating at a buffet and had the onset of nausea and vomiting. She was noted to have severe electrolyte abnormalities with the SVT and was transferred to [facility]. Her SVT resolved after correction of her electrolyte abnormalities. She was noted to have a small-bowel obstruction with elevated liver function tests and had a fecal impaction and underwent manual disimpaction on 06/05/2016. She has a history of an incarcerated ventral hernia and surgery is involved, and they are not recommending any elective surgery until at least September, with her recent diagnosis of a right lower extremity DVT in March. She has been on Xarelto. She had an NG tube in place and that was able to be removed. She is on liquids, and there is gradual advancement as tolerated. She is significantly debilitated and has the above noted issues of medical complexity. She has now been admitted for acute in-hospital inpatient rehabilitation. PAST MEDICAL HISTORY: Includes the right lower extremity DVT in March for which she has been on the Xarelto. She has a history of chronic left staghorn calculus. She has cellulitis of the lower extremities and is followed by wound care. She has diet-controlled diabetes, lymphedema and peripheral vascular disease. MEDICATIONS: Please see the full medication listing. Each of these medications was individually reconciled. That includes her medications as well as [id number]-eil-[id number] supplements, etc. HABITS: No history of tobacco or alcohol. SOCIAL HISTORY: Lives in a house, 2 steps in, did not utilize any gait aids. She lives with her son. This is a ranch-style house. Her son works from home. REVIEW OF SYSTEMS: Did not offer any current complaints of chest pain, shortness of breath or abdominal discomfort. Her throat discomfort has been improved after removal of the NG tube. Continues to complain of overall generalized weakness. She has the chronic swelling of her lower extremities with [place] [address] HISTORY AND PHYSICAL Name: CAS ROCHE Room #: 516-1 ADM IN .R.#: [id number] Admission: 06/10/16 Attend Phys: Inder Culp MD Discharge: Date of : 37 Report #: [id number] PHYSICAL EXAMINATION: GENERAL: She is a pleasant 80-year-old white female, in no obvious distress. VITAL SIGNS: Admission vitals are being obtained. The most recent vitals, prior to transfer, included temperature 36.9, pulse 73, respirations 16 and blood pressure 127/64. GENERAL: The patient is alert, follows basic commands without difficulty. Facies are symmetric. HEENT: Appeared to be benign. CHEST: Sounded clear to auscultation. CARDIOVASCULAR: Regular rate and rhythm with occasional extra beat. ABDOMEN: She has a large ventral hernia. It was not tense and was soft. EXTREMITIES: In lower extremities, she has 1+ to 2+ edema. Right leg was wrapped. She has erythema of both lower extremities with her cellulitis. Strength is a grade 4- to 3+/5. She has needed limited assistance with sit to stand and has only been ambulating a short distance with the front wheeled walker with assistance. ASSESSMENT: A 80-year-old white female with the following problem list: 1. Medical complexity with generalized debilitation. 2. Severe metabolic alkalosis. 3. Small-bowel obstruction with nausea and vomiting, which improved. 4. Large ventral hernia with surgery involved with no urgent plans for surgical intervention. 5. Renal insufficiency. Nephrology has been following. 6. Abnormal liver function tests that have been improving. 7. Chronic constipation with fecal impaction, status post recent disimpaction. 8. History of right lower extremity deep vein thrombosis, on Xarelto. This has been restarted. 9. Bilateral lower extremity cellulitis. 10. Supraventricular tachycardia which resolved. PLAN: The patient is admitted for acute in-hospital inpatient rehabilitation. From a post-admission physician evaluation perspective, there are no relevant changes since the preadmission screening. Please see the above review of prior and current medical and functional conditions and comorbidities. Please see the patient's previous and current functional status. As far as risk of complications, she has the multiple medical comorbidities as noted above. Initial plan of care involves the interdisciplinary acute inpatient rehabilitation program with goal of maximizing the patient's functional independence, so she can hopefully return back to her prior living situation. Measurable functional goals would be for her to become modified independent with transfers, mobility and ADLs, so that she can return back to the home setting. Prognosis is reasonably good. Estimated length of stay is probably at least 1-2 weeks pending progress. Potential barriers would include the multiple medical comorbidities and decreased functional status. The patient meets diagnostic criteria for an acute in-hospital inpatient [facility] [address] [place] [address] HISTORY AND PHYSICAL Name: CAS ROCHE LESLIE Room #: 516-1 ADM IN M.R.#: [id number] Admission: 06/10/16 Attend Phys: Inder Culp MD Discharge: Date of : 37 Report #: [id number] rehabilitation stay. She meets medical necessity criteria, and we will have the multiple foreign legal consultant physicians continue to follow while she is on rehabilitation. She does have the tolerance for an acute rehab stay and has appropriate discharge goals back to the home setting. <ELECTRONICALLY SIGNED> By: Inder Culp MD 06/15/16 1528 [id number] Inder Culp MD /nt
--- NOTE | ~2016-06-10 | HC ---
[facility] [place] [place] [address] CONSULTATION Name: CAS ROCHE Room #: 516-1 ADM IN M.R.#: [id number] Admission: 06/10/16 Attend Phys: Inder Culp MD Discharge: Date of : 37 Report #: [id number] THIS REPORT FOR: //name// CC: Inder Monroe DATE OF SERVICE: 06/11/2016 ATTENDING PHYSICIAN: Inder Culp M.D. SLATE ROOFER: Ney Sanders, Ph.D. CLINICAL PRESENTATION: The patient is a 80-year-old female admitted to the [facility] for treatment of medical complexity and general debility. She was initially admitted with severe metabolic alkalosis. Her initial assessment includes a small bowel obstruction with nausea and vomiting, large ventral hernia with surgery, renal insufficiency, abnormal liver function tests, chronic constipation with fecal impaction; history of right lower extremity deep vein thrombosis, on Xarelto; bilateral lower extremity cellulitis and supraventricular tachycardia which has resolved. A complete description of her medical condition and history along with medications can be found in her medical record. Neuropsychological consultation was requested to provide assistance in the assessment of cognitive and emotional status and to provide recommendations and services. Prior to this most recent medical event, she was living independently with her son. 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 She has one child. The patient is a high school graduate. There is no reported history of treatment for anxiety, depression, alcohol or drug misuse. The patient discontinued driving about 2 years ago. She is no longer cooking. She has not taken medication up until this hospitalization. Her son is very supportive and works from home. She can provide supervision as necessary. TECHNIQUES UTILIZED: Clinical interview, review of medical records, staff consultation and behavioral observation, family interview -- son, mini mental status exam 2 standard version and clock drawing. EXAMINATION FINDINGS: The patient was alert and cooperative with the assessment. She accurately described events surrounding her admission. There is no evidence of aphasia. Her thoughts are logical and goal oriented. There is no evidence of thought disorder. She does not report auditory or visual hallucinations. The patient does not indicate the experience of pain. She denies difficulty with memory, word finding or concentration. She states that her appetite is poor. While she denies anxiety or depression, her mood is somewhat anxious. She is concerned about her physical well being. [facility] [address] [place] [address] CONSULTATION Name: CAS ROCHE LESLIE Room #: 516-1 [facility] IN .R.#: [id number] Admission: 06/10/16 Attend Phys: Inder Culp MD Discharge: Date of : 37 Report #: [id number] Her performance on the MMSE 2 brief version is within normal limits with a raw score of 15 of 16. She was 3/3 for initial registration, 5/5 for orientation to time, 5/[address] and 2/3 for immediate recall of 3 items after brief time delay and distraction. Her performance on the MMSE 2 standard version was within normal limits with a raw score 28 of 30. She was 5/5 for serial sevens, 2/2 for naming, 1/1 for repetition. Auditory comprehension was within normal limits. She could read and follow a single command. The patient was able to write a sentence. She had difficulty in copying a simple geometric design suggesting some deficit and visual spatial organization. Clock drawing within normal limits. DIAGNOSTIC IMPRESSION: Adjustment disorder with anxious mood. Mild neurocognitive disorder, unspecified, without behavior disorder. RECOMMENDATIONS: The patient appears to be showing good recovery in cognitive functioning. She is alert and oriented. Her son is available to provide assistance as needed. Her son and the patient did not report concern regarding her cognitive functioning or emotional state. The anxiety is likely secondary to her medical condition and resolving as she improves. Thank you very much for allowing me to provide the consultation on this patient. <ELECTRONICALLY SIGNED> By: Ney Sanders, PhD 06/14/16 1149 1521 [id number] Ney Sanders, PhD /nt
[2016-06-10] MEDS ORDERED: LEVAQUIN 750 M750 MG PO (14:33)
[2016-06-11 05:58] VITALS: BP 119/47
[2016-06-11 16:00] VITALS: BP 130/69
[2016-06-12 05:32] VITALS: BP 122/69
[2016-06-12 16:00] VITALS: BP 126/68
[2016-06-13 05:23] VITALS: BP 122/68
[2016-06-13 05:49] LABS: HEMATOCRIT 30.4 % (37.0-47.0); HEMOGLOBIN 10.4 gm/dL (12.0-15.0); MCH 30.4 pg (26.0-34.0); MCHC 34.3 g/dL (28.0-37.0); MCV 88.8 fL (80.0-100.0); RBC 3.42 mil/uL (4.20-5.00); RDW 14.7 % (10.5-14.5); WBC 6.4 thou/uL (4.0-11.0)
[2016-06-13 06:09] LABS: ALBUMIN 1.9 g/dL (3.4-5.0); CREATININE 0.7 mg/dL (0.6-1.0); PHOSPHORUS 2.2 mg/dL (2.5-4.9); POTASSIUM 3.6 mmol/L (3.5-5.1)
[2016-06-14 04:46] VITALS: BP 109/56
[2016-06-14 04:53] LABS: HEMATOCRIT 28.3 % (37.0-47.0); HEMOGLOBIN 9.6 gm/dL (12.0-15.0); MCHC 34.1 g/dL (28.0-37.0); PLATELET COUNT 181 thou/uL (150-400); RBC 3.21 mil/uL (4.20-5.00); RDW 14.8 % (10.5-14.5); WBC 6.1 thou/uL (4.0-11.0)
[2016-06-14 05:05] LABS: ALBUMIN 1.8 g/dL (3.4-5.0); CALCIUM 8.1 mg/dL (8.5-10.1); CREATININE 0.7 mg/dL (0.6-1.0); MAGNESIUM 1.4 mg/dL (1.8-2.4); POTASSIUM 3.7 mmol/L (3.5-5.1); TOTAL BILIRUBIN 0.2 mg/dL (<0.1-1.0); TOTAL PROTEIN 4.4 g/dL (6.4-8.2)
[2016-06-14 05:06] LABS: MANUAL DIFF YES
[2016-06-14 07:57] LABS: ABSOLUTE NEUTROPHILS 4.3 thou/uL (1.4-8.2); ANISOCYTOSIS 1+; METAMYELOCYTES 1 %; TOTAL CELL COUNT 100
[2016-06-14 16:00] VITALS: BP 124/64
[2016-06-15 05:49] VITALS: BP 109/58
[2016-06-15 06:14] LABS: HEMATOCRIT 27.1 % (37.0-47.0); HEMOGLOBIN 9.1 gm/dL (12.0-15.0); MCH 29.7 pg (26.0-34.0); MCHC 33.4 g/dL (28.0-37.0); MCV 88.8 fL (80.0-100.0); PLATELET COUNT 175 thou/uL (150-400); RBC 3.05 mil/uL (4.20-5.00); RDW 15.4 % (10.5-14.5); WBC 6.4 thou/uL (4.0-11.0)
[2016-06-15 06:20] LABS: MANUAL DIFF YES
[2016-06-15 06:53] LABS: ALBUMIN 1.8 g/dL (3.4-5.0); CALCIUM 7.9 mg/dL (8.5-10.1); CREATININE 0.7 mg/dL (0.6-1.0); MAGNESIUM 1.8 mg/dL (1.8-2.4); POTASSIUM 3.9 mmol/L (3.5-5.1); TOTAL BILIRUBIN 0.2 mg/dL (<0.1-1.0); TOTAL PROTEIN 4.4 g/dL (6.4-8.2)
[2016-06-15 08:08] LABS: ABSOLUTE NEUTROPHILS 5.1 thou/uL (1.4-8.2); ANISOCYTOSIS 1+; METAMYELOCYTES 1 %; TOTAL CELL COUNT 100
[2016-06-15 16:00] VITALS: BP 107/60
[2016-06-16 05:31] VITALS: BP 119/68
[2016-06-16 05:43] LABS: ABSOLUTE NEUTROPHILS 5.3 thou/uL (1.4-8.2); BASOPHILS 0.2 % (0.0-2.0); EOSINOPHILS 0.5 % (0.0-3.0); HEMATOCRIT 28.1 % (37.0-47.0); HEMOGLOBIN 9.6 gm/dL (12.0-15.0); LYMPHOCYTES 12.3 % (24.0-44.0); MCV 88.1 fL (80.0-100.0); MONOCYTES 8.5 % (1.0-8.0); PLATELET COUNT 184 thou/uL (150-400); POLYS 78.5 % (36.0-66.0); RBC 3.19 mil/uL (4.20-5.00); RDW 15.7 % (10.5-14.5); WBC 6.8 thou/uL (4.0-11.0)
[2016-06-16 05:45] LABS: MANUAL DIFF NO
[2016-06-16 05:53] LABS: CREATININE 0.6 mg/dL (0.6-1.0); MAGNESIUM 1.7 mg/dL (1.8-2.4); POTASSIUM 3.6 mmol/L (3.5-5.1)
[2016-06-16 16:15] VITALS: BP 104/53
[2016-06-17 06:04] VITALS: BP 98/51
[2016-06-17] MEDS ORDERED: LEVAQUIN 750 M750 MG PO (10:54)
[2016-06-17] MEDS ORDERED: PROTONIX40 M1 PO (10:54)
[2016-06-17] MEDS ORDERED: ZOFRAN ODT4 MG DISSOLVE (10:54)
[2016-06-17 11:22] VITALS: BP 98/51
== END 2016-06-17 12:45 | disposition home or self-care (01) | DRG 947 ==
PROVIDERS: Internal Medicine Nephrology; Nurse Practitioner
DX: R53.81 Other malaise (principal); E43 Unspecified severe protein-calorie malnutrition; L97.919 Non-pressure chronic ulcer of unspecified part of right lower leg with unspecified severity; E87.3 Alkalosis; I47.1 Supraventricular tachycardia; L03.115 Cellulitis of right lower limb; E44.0 Moderate protein-calorie malnutrition; N17.9 Acute kidney failure, unspecified; K43.0 Incisional hernia with obstruction, without gangrene; F43.20 Adjustment disorder, unspecified; G31.84 Mild cognitive impairment of uncertain or unknown etiology; F41.9 Anxiety disorder, unspecified; K59.09 Other constipation; I10 Essential (primary) hypertension; E87.6 Hypokalemia; E86.0 Dehydration; E11.51 Type 2 diabetes mellitus with diabetic peripheral angiopathy without gangrene; I87.8 Other specified disorders of veins; I89.0 Lymphedema, not elsewhere classified; E83.42 Hypomagnesemia; Z98.49 Cataract extraction status, unspecified eye; Z86.718 Personal history of other venous thrombosis and embolism; Z79.899 Other long term (current) drug therapy; Z68.22 Body mass index [BMI] 22.0-22.9, adult
CPT/HCPCS: 10112

== ENCOUNTER → 2016-07-12 | Outpatient (CLI) | payer OTHER ==
[~2016-07-12] MED LIST changes: +LEVAQUIN 750 M750 MG PO; +PROTONIX40 M1 PO; +ZOFRAN ODT4 MG DISSOLVE
== END ==
LOC: HYPER 06-21 12:09
DX: I87.331 Chronic venous hypertension (idiopathic) with ulcer and inflammation of right lower extremity (principal); L97.812 Non-pressure chronic ulcer of other part of right lower leg with fat layer exposed; R60.0 Localized edema; I89.0 Lymphedema, not elsewhere classified; Z86.718 Personal history of other venous thrombosis and embolism

== ENCOUNTER → 2016-08-11 | Outpatient (CLI) | payer OTHER | LOC: HYPER 07:00 | DX: E11.622 Type 2 diabetes mellitus with other skin ulcer (principal); L97.812 Non-pressure chronic ulcer of other part of right lower leg with fat layer exposed; I87.331 Chronic venous hypertension (idiopathic) with ulcer and inflammation of right lower extremity; I82.501 Chronic embolism and thrombosis of unspecified deep veins of right lower extremity; I89.0 Lymphedema, not elsewhere classified; L03.116 Cellulitis of left lower limb; R26.9 Unspecified abnormalities of gait and mobility ==

== ENCOUNTER → 2016-09-13 | Outpatient (CLI) | payer OTHER | LOC: HYPER 07:02 | DX: I87.333 Chronic venous hypertension (idiopathic) with ulcer and inflammation of bilateral lower extremity (principal); E11.622 Type 2 diabetes mellitus with other skin ulcer; L97.812 Non-pressure chronic ulcer of other part of right lower leg with fat layer exposed; L97.822 Non-pressure chronic ulcer of other part of left lower leg with fat layer exposed; I89.0 Lymphedema, not elsewhere classified; Z86.711 Personal history of pulmonary embolism ==

== ENCOUNTER → 2016-10-11 | Outpatient (CLI) | payer OTHER | LOC: HYPER 07:26 | DX: I87.331 Chronic venous hypertension (idiopathic) with ulcer and inflammation of right lower extremity (principal); L97.812 Non-pressure chronic ulcer of other part of right lower leg with fat layer exposed; Z86.718 Personal history of other venous thrombosis and embolism; I89.0 Lymphedema, not elsewhere classified; E11.622 Type 2 diabetes mellitus with other skin ulcer ==

== ENCOUNTER 2016-11-04 05:34 | Inpatient (IN) | payer OTHER ==
[2016-11-04] VITALS (7 sets, daily range): BP systolic 111–165; BP diastolic 55–81
[~2016-11-04] VITALS: Ht 162.6 cm; Wt 43.1 kg
--- NOTE | ~2016-11-04 | HC ---
[facility] [place] [address] CONSULTATION Name: CAS ROCHE LESLIE Room #: 409-P ADM IN M.R.#: [id number] Admission: 11/04/16 Attend Phys: Rachel Rosado Discharge: Date of : 37 Report #: [id number] THIS REPORT FOR: //name// CC: Pino Rosado DATE OF SERVICE: 11/04/2016 REFERRING PROVIDER: Rachel Rosado M.D. REASON FOR CONSULTATION: Abdominal pain. HISTORY OF PRESENT ILLNESS: The patient is a 80-year-old thin male who is well known to our service as she has been seen numerous times for a large loss of abdominal domain, incisional ventral hernia. The patient has been admitted on numerous prior occasions with abdominal pain, dehydration, nausea and vomiting and has seen Dr. Rojas in the outpatient setting for planning to proceed with definitive surgical management. Most recently, the patient's son had declined proceeding with surgical intervention, and unfortunately, the patient presented back to the Emergency Room this morning with severe sudden-onset abdominal pain, nausea and vomiting that began last evening. The patient does have a history of a right lower extremity DVT on 2 prior occasions, for which she just finished a 6-month course of therapy with Xarelto. The patient does have redness to the left leg at this time and just received an ultrasound of the lower extremities, which showed no evidence of DVT in the right lower extremity; however, there is a new left femoral/popliteal DVT in the left lower extremity. Upon the most recent imaging, the patient does have what appears to be a gastric outlet obstruction with a large proportion of her stomach contained through the hernia defect with a markedly distended/dilated stomach that has been decompressed with an NG tube at this time. PAST MEDICAL HISTORY: Diabetes mellitus, cataracts, incisional ventral hernia from a via longitudinal midline wound, right lower extremity DVTs and prior cellulitis of the lower extremity. MEDICATIONS: Zofran, Silvadene cream and she just restarted Levaquin for her cellulitis. ALLERGIES: No known drug allergies. FAMILY HISTORY: Reviewed and noncontributory. SOCIAL HISTORY: The patient does not utilize tobacco, alcohol or illicit drugs. She is accompanied by her son today. REVIEW OF SYSTEMS: [address] [address] CONSULTATION Name: CAS ROCHE LESLIE Room #: 409-P [facility] IN M.R.#: [id number] Admission: 11/04/16 Attend Phys: Rachel Rosado Discharge: Date of : 37 Report #: [id number] GENERAL: The patient denies nocturnal fevers or chills. HEENT: No change in vision or change in hearing. NECK: No swelling or difficulty swallowing. HEART: No chest pain or palpitations. LUNGS: No cough or shortness of breath. ABDOMEN: Abdominal pain with nausea and vomiting. GENITOURINARY: No dysuria or hematuria. ENDOCRINE: No polyuria or polydipsia. HEMATOLOGIC: No history of bleeding or easy bruising. EXTREMITIES: No history weakness or limited range of motion. NEUROLOGIC: No history of syncope or near syncopal episodes. SKIN AND INTEGUMENT: No history of abnormal lesions or moles. PSYCHIATRIC: No history of anxiety or depression. PHYSICAL EXAMINATION: VITAL SIGNS: Temperature 98.0, pulse 86, respirations 20, blood pressure 127/57. She is 5 feet 4 inches tall and weighs 100 pounds. GENERAL: She is alert and oriented, in no acute distress. HEENT: Normocephalic, atraumatic. Pupils equal, round and reactive to light. NECK: Supple without lymphadenopathy. Trachea midline. HEART: Regular rate and rhythm. LUNGS: Clear to auscultation bilaterally. GASTROINTESTINAL: Abdomen is distended with tenderness to palpation, although the incarcerated contents are slightly firm, but they feel largely reducible at this time. NG tube is in the left naris, draining bilious fluid. GENITOURINARY: Normal external female genitalia. EXTREMITIES: No clubbing or cyanosis. However, she does have erythema to the left lower extremity with slight firmness and edema of the calf. NEUROLOGIC: Cranial nerves 2 through 12 are grossly intact. PSYCHIATRIC: Normal mood and affect. SKIN AND INTEGUMENT: No other abnormal lesions or moles. LABORATORY AND X-RAY DATA: CBC shows white blood cell count of 10.9 thousand, hemoglobin 15.5, platelets 199,000. She does have a left shift of 90% neutrophils. Her creatinine is 1.0. Her CO2 is markedly elevated at 45. Her liver function enzymes show an elevation of her total bilirubin to 2.6, and her glucose is elevated at 246. Ultrasound of the bilateral lower extremities shows a new left femoral-popliteal DVT but no evidence of right lower extremity DVT. CT scan of the abdomen and pelvis shows a large incisional ventral wall hernia with most of the colon and small bowel herniated into the subcutaneous tissues as well as massive fluid distention of the stomach with the distal stomach herniated through the abdominal wall defect as well, providing a gastric outlet obstruction. There is also marked fecal impaction within the rectal vault, and she has a staghorn calculus and a malrotated left pelvic kidney. ASSESSMENT AND PLAN: This is a 80-year-old female with a longstanding [address] [address] CONSULTATION Name: CAS ROCHE Room #: 409-P [facility] IN [facility].#: [id number] Admission: 11/04/16 Attend Phys: Rachel Oliver [place] Discharge: Date of : 37 Report #: [id number] history of an incisional ventral hernia containing nearly her entire small bowel, colon and the distal stomach with gastric outlet obstruction. This does feel slightly reproducible but nearly immediately recurs upon taking pressure off the abdominal wall. In addition, she has a new DVT of the left lower extremity and fecal impaction and chronic debility. At this time, the patient has had an NG tube placed, which will serve to decompress her stomach and provide relief from her gastric outlet obstruction. As her hernia does feel largely reducible at this time, I would like to place an abdominal binder on her to help prevent from recurrent incarceration. She did undergo a PIPIDA scan in the recent past showing a normal ejection fraction with immediate reproduction of symptoms upon injection of cholecystokinin, and therefore, at the time of definitive surgical management for her hernia, she would likely undergo open cholecystectomy as well. At this time, we will continue with aggressive intravenous fluid rehydration for support in addition to n.p.o. status and nasogastric tube decompression, and I will defer any anticoagulation to the primary care service at this time. If the patient does worsen acutely, we may necessitate emergent exploration, and as such, I would recommend treatment of her DVT with heparin in the initial phase rather than going right back on Xarelto, which would preclude safe exploration for a period of 2-3 days if needed. I will follow closely with serial abdominal exams and leave all further recommendations in the patient's chart as appropriate. I did spend greater than 16 minutes today reviewing her films with Dr. Carver of the Radiology Department discussing with the patient and her son in great detail the plan as outlined above. Again, I sincerely appreciate this consult. I will follow closely and leave any further recommendations in the patient's chart as appropriate. <ELECTRONICALLY SIGNED> By: Kaylee Pimentel MD, FACS 11/05/16 0918 [id number] Kaylee Pimentel MD, FACS /nt
[2016-11-04] MEDS ORDERED: VITAMIN D250000 UNIT PO (05:53)
[2016-11-04 06:42] LABS: CALCIUM 9.7 mg/dL (8.5-10.1); POTASSIUM 3.2 mmol/L (3.5-5.1)
[2016-11-04 06:44] LABS: HEMATOCRIT 46.1 % (37.0-47.0); HEMOGLOBIN 15.5 gm/dL (12.0-15.0); MCH 29.8 pg (26.0-34.0); MCHC 33.7 g/dL (28.0-37.0); MCV 88.3 fL (80.0-100.0); PLATELET COUNT 199 thou/uL (150-400); RBC 5.22 mil/uL (4.20-5.00); RDW 16.2 % (10.5-14.5); WBC 10.9 thou/uL (4.0-11.0)
[2016-11-04 06:48] LABS: ALBUMIN 3.8 g/dL (3.4-5.0); TOTAL BILIRUBIN 2.6 mg/dL (<0.1-1.0); TOTAL PROTEIN 6.4 g/dL (6.4-8.2)
[2016-11-04 06:51] LABS: MANUAL DIFF YES
[2016-11-04 07:13] LABS: ABSOLUTE NEUTROPHILS 9.8 thou/uL (1.4-8.2); ANISOCYTOSIS 1+; TOTAL CELL COUNT 100
[2016-11-04 10:08] LABS: TSH 1.084 uIU/mL (0.358-3.740)
[2016-11-04 15:05] LABS: INR 1.1; PROTIME 11.4 Seconds (9.3-11.4)
[2016-11-04 15:06] LABS: APTT 22.9 Seconds (24.5-32.8)
[2016-11-04 19:11] LABS: GLYCOHEMOGLOBIN (HGB A1C) 6.2 % (4.8-5.6)
[2016-11-05 03:14] VITALS: BP 122/66
[2016-11-05 03:31] LABS: ABSOLUTE NEUTROPHILS 5.3 thou/uL (1.4-8.2); BASOPHILS 0.1 % (0.0-2.0); EOSINOPHILS 0.2 % (0.0-3.0); HEMATOCRIT 38.8 % (37.0-47.0); LYMPHOCYTES 12.6 % (24.0-44.0); MCH 29.7 pg (26.0-34.0); MCHC 33.4 g/dL (28.0-37.0); MCV 88.9 fL (80.0-100.0); MONOCYTES 9.5 % (1.0-8.0); PLATELET COUNT 167 thou/uL (150-400); POLYS 77.6 % (36.0-66.0); RBC 4.37 mil/uL (4.20-5.00); RDW 15.5 % (10.5-14.5); WBC 6.8 thou/uL (4.0-11.0)
[2016-11-05 03:32] LABS: MANUAL DIFF NO
[2016-11-05 03:48] LABS: ALBUMIN 2.9 g/dL (3.4-5.0); CALCIUM 8.5 mg/dL (8.5-10.1); CREATININE 0.7 mg/dL (0.6-1.0); POTASSIUM 3.1 mmol/L (3.5-5.1); TOTAL PROTEIN 5.6 g/dL (6.4-8.2)
[2016-11-05 05:57] LABS: URINE BILIRUBIN NEGATIVE (Negative); URINE BLOOD 3+ (Negative); URINE COLOR YELLOW; URINE GLUCOSE-RANDOM* TRACE (Negative); URINE KETONES TRACE (Negative); URINE PROTEIN (DIPSTICK) NEGATIVE (Negative); URINE SPECIFIC GRAVITY 1.015 (1.003-1.035); URINE UROBILINOGEN 0.2 E.U./dl (0.2-1.0)
[2016-11-05 06:04] LABS: URINE LEUKOCYTES-REFLEX TRACE (Negative)
[2016-11-05 06:07] LABS: SQUAMOUS 4-10 Moderate /LPF (0-3); URINE RBC >20 Many /HPF (0-2)
[2016-11-05 06:08] LABS: CASTS None Seen /LPF (None Seen); CRYSTALS None Seen /LPF (None Seen); URINE WBC-REFLEX 0-5 Rare /HPF (0-5)
[2016-11-05 08:00] VITALS: BP 109/61
[2016-11-05 19:47] VITALS: BP 116/58
[2016-11-06 04:11] VITALS: BP 107/62
[2016-11-06 06:28] LABS: HEMATOCRIT 35.6 % (37.0-47.0); HEMOGLOBIN 12.5 gm/dL (12.0-15.0); MCH 30.2 pg (26.0-34.0); MCHC 34.9 g/dL (28.0-37.0); MCV 86.4 fL (80.0-100.0); RBC 4.13 mil/uL (4.20-5.00); RDW 15.2 % (10.5-14.5); WBC 5.5 thou/uL (4.0-11.0)
[2016-11-06 06:47] LABS: ALBUMIN 2.9 g/dL (3.4-5.0); CALCIUM 8.4 mg/dL (8.5-10.1); CREATININE 0.6 mg/dL (0.6-1.0); TOTAL BILIRUBIN 1.9 mg/dL (<0.1-1.0); TOTAL PROTEIN 5.1 g/dL (6.4-8.2)
[2016-11-06 08:00] VITALS: BP 107/54
[2016-11-06 16:00] VITALS: BP 114/48
[2016-11-06 18:56] VITALS: BP 108/74
[2016-11-07 04:47] VITALS: BP 120/65
[2016-11-07 06:18] LABS: HEMATOCRIT 37.8 % (37.0-47.0); HEMOGLOBIN 13.3 gm/dL (12.0-15.0); MCHC 35.1 g/dL (28.0-37.0); MCV 85.6 fL (80.0-100.0); RBC 4.42 mil/uL (4.20-5.00); RDW 15.3 % (10.5-14.5); WBC 4.5 thou/uL (4.0-11.0)
[2016-11-07 06:34] LABS: ALBUMIN 2.8 g/dL (3.4-5.0); CALCIUM 8.7 mg/dL (8.5-10.1); CREATININE 0.6 mg/dL (0.6-1.0); POTASSIUM 3.1 mmol/L (3.5-5.1); TOTAL BILIRUBIN 1.8 mg/dL (<0.1-1.0); TOTAL PROTEIN 5.5 g/dL (6.4-8.2)
[2016-11-07 07:48] VITALS: BP 120/65
[2016-11-07 15:30] VITALS: BP 119/62
[2016-11-07 20:05] VITALS: BP 114/40
[2016-11-08 04:11] VITALS: BP 118/60
[2016-11-08 06:23] LABS: MCH 30.2 pg (26.0-34.0); MCHC 35.1 g/dL (28.0-37.0); RBC 4.3 mil/uL (4.20-5.00); RDW 15.2 % (10.5-14.5); WBC 4.7 thou/uL (4.0-11.0)
[2016-11-08 09:07] VITALS: BP 133/51
[2016-11-08 09:46] LABS: CALCIUM 8.3 mg/dL (8.5-10.1); CREATININE 0.6 mg/dL (0.6-1.0); POTASSIUM 3.5 mmol/L (3.5-5.1)
[2016-11-08 16:00] VITALS: BP 116/56
[2016-11-08 19:52] VITALS: BP 103/34
[2016-11-09 05:03] VITALS: BP 110/47
[2016-11-09 08:00] VITALS: BP 123/63
[2016-11-09] MEDS ORDERED: PROTONIX40 M1 PO (14:03)
[2016-11-09] MEDS ORDERED: XARELTO15 MG PO (14:03)
[2016-11-09 14:19] VITALS: BP 123/63
== END 2016-11-09 13:30 | disposition home or self-care (01) | DRG 393 ==
LOC: ER 05:34 → 4N 08:34 → EROBS 08:34 → 4N 09:32 → 4W 11-08 11:54 → 4S 11-08 12:02
PROVIDERS: Emergency Medicine; Hospitalist; Internal Medicine
PROC: 0D9670Z Drainage of Stomach with Drainage Device, Via Natural or Artificial Opening (ICD-10-PCS; principal; 2016-11-07)
DX: K43.0 Incisional hernia with obstruction, without gangrene (principal); E43 Unspecified severe protein-calorie malnutrition; G93.41 Metabolic encephalopathy; E87.0 Hyperosmolality and hypernatremia; E87.3 Alkalosis; K31.1 Adult hypertrophic pyloric stenosis; I82.432 Acute embolism and thrombosis of left popliteal vein; I82.412 Acute embolism and thrombosis of left femoral vein; Z68.1 Body mass index [BMI] 19.9 or less, adult; E11.51 Type 2 diabetes mellitus with diabetic peripheral angiopathy without gangrene; E87.6 Hypokalemia; E86.0 Dehydration; K59.00 Constipation, unspecified; N20.0 Calculus of kidney; F41.1 Generalized anxiety disorder; K82.8 Other specified diseases of gallbladder; Z82.49 Family history of ischemic heart disease and other diseases of the circulatory system; Z79.899 Other long term (current) drug therapy; Z90.49 Acquired absence of other specified parts of digestive tract; Z86.718 Personal history of other venous thrombosis and embolism; Z98.41 Cataract extraction status, right eye; Z98.42 Cataract extraction status, left eye
CPT/HCPCS: 10091; 10102

== ENCOUNTER 2017-12-07 20:40 | Emergency (ER) | payer OTHER ==
[~2017-12-07] VITALS: Ht 162.6 cm; Wt 45.4 kg
[~2017-12-07 20:40] MED LIST changes: +VITAMIN D250000 UNIT PO; +XARELTO15 MG PO
[2017-12-07] MEDS ORDERED: ATIVAN0.5 MG PO (22:06)
[2017-12-07 22:24] LABS: ABSOLUTE NEUTROPHILS 9.1 thou/uL (1.4-8.2); BASOPHILS 0.1 % (0.0-2.0); EOSINOPHILS 0.1 % (0.0-3.0); HEMOGLOBIN 14.2 gm/dL (12.0-15.0); LYMPHOCYTES 5.8 % (24.0-44.0); MCH 29.2 pg (26.0-34.0); MCHC 34.7 g/dL (28.0-37.0); MCV 84.2 fL (80.0-100.0); MONOCYTES 9.4 % (1.0-8.0); PLATELET COUNT 398 thou/uL (150-400); POLYS 84.6 % (36.0-66.0); RBC 4.87 mil/uL (4.20-5.00); RDW 14.8 % (10.5-14.5); WBC 10.7 thou/uL (4.0-11.0)
[2017-12-07 22:32] LABS: CALCIUM 9.4 mg/dL (8.5-10.1); CREATININE 2.1 mg/dL (0.6-1.0)
[2017-12-07 22:34] LABS: POTASSIUM 2.7 mmol/L (3.5-5.1)
[2017-12-07 22:38] LABS: ALBUMIN 3.3 g/dL (3.4-5.0); DIRECT BILIRUBIN 0.4 mg/dL (<0.1-0.3); TOTAL BILIRUBIN 1.7 mg/dL (<0.1-1.0); TOTAL PROTEIN 6.8 g/dL (6.4-8.2)
[2017-12-07 23:31] LABS: URINE BLOOD NEGATIVE (Negative); URINE CLARITY SL CLOUDY; URINE COLOR YELLOW; URINE GLUCOSE-RANDOM* NEGATIVE (Negative); URINE KETONES TRACE (Negative); URINE NITRITE-REFLEX NEGATIVE (Negative); URINE PROTEIN (DIPSTICK) NEGATIVE (Negative); URINE SPECIFIC GRAVITY >= 1.030 (1.005-1.035); URINE UROBILINOGEN 0.2 E.U./dl (0.2-1.0)
[2017-12-07 23:32] LABS: URINE LEUKOCYTES-REFLEX 1+ (Negative)
[2017-12-07 23:33] LABS: ICTOTEST (BILI CONFIRMATORY) Negative (Negative); URINE BILIRUBIN NEGATIVE (Negative)
[2017-12-07 23:43] LABS: CASTS None Seen /LPF (None Seen); SQUAMOUS 0-3 Few /LPF (0-3)
[2017-12-07 23:44] LABS: BACTERIA-REFLEX 1-9 Few /HPF (None Seen); CRYSTALS None Seen /LPF (None Seen); URINE RBC None Seen /HPF (0-2); URINE WBC-REFLEX 0-5 Rare /HPF (0-5)
[2017-12-08] MEDS ORDERED: PROTONIX 20 MG20 MG PO (03:36)
[2017-12-08 03:54] VITALS: BP 128/55
== END 2017-12-08 04:07 | disposition home or self-care (01) ==
LOC: ER 20:40
PROVIDERS: Emergency Medicine
DX: K20.9 Esophagitis, unspecified (principal); R11.2 Nausea with vomiting, unspecified; E11.9 Type 2 diabetes mellitus without complications; I73.9 Peripheral vascular disease, unspecified; Z86.718 Personal history of other venous thrombosis and embolism; Z87.442 Personal history of urinary calculi